=== PATIENT | female | born 1965 | race Caucasian/White ===

== ENCOUNTER 2024-05-13 09:00 | Day surgery (SDC) | payer OTHER ==
[2024-05-10 10:41] LABS: Absolute Basophils 0.1 K/uL (0-0.5); Absolute Eosinophils 0.3 K/uL (0-0.5); Absolute Lymphocytes (CBC) 2.3 K/uL (0.7-4.9); Absolute Monocytes 0.7 K/uL (0.1-1.3); Absolute Neutrophil 4.7 K/uL (1.8-8.0); Basophils % 0.7 % (0-1.3); Eosinophils % 3.9 % (0-4.4); Hematocrit 34.3 % (36.0-45.0); Hemoglobin 11.3 g/dL (12.0-15.0); Lymphocytes % 28.5 % (15.3-44.8); MCH 31.3 pg (27.0-35.0); MPV 7.9 fL (7.6-11.3); Monocytes % 8.8 % (3.3-12.3); Neutrophils % 58.1 % (41.7-73.7); Platelets 249 thou/uL (152-406); RBC Red Blood Cell Count 3.61 M/uL (3.86-4.86)
[2024-05-10 10:46] LABS: Anion Gap 7.2 mEq/L (5.0-15.0); Potassium 4.2 mEq/L (3.5-5.1)
[2024-05-13] MEDS ORDERED: propofoL 200 MG/20 ML VIAL IV ONE (09:31)
[2024-05-13] MEDS ORDERED: LIDOCAINE 1% MPF 5 ML VIAL ONE (09:31)
[2024-05-13] MEDS ORDERED: ONDANSETRON 4 MG/2 ML VIAL ONE (09:31)
[2024-05-13] MEDS ORDERED: FENTANYL CITR 100 MCG/2 ML ONE (09:31)
[2024-05-13] MEDS ORDERED: MIDAZOLAM HCL 2 MG/2 ML INJ ONE (09:31)
[2024-05-13] MEDS ORDERED: ROCURONIUM 50 MG/5 ML VIAL IV ONE (09:31)
[2024-05-13] MEDS: Ringers Lactate 1,000 ML IV ONE (09:50)
[2024-05-13] MEDS ORDERED: SUGAMMADEX SODIUM 200 MG/2 ML VIAL IV ONE (10:21)
[2024-05-13] MEDS ORDERED: ALBUTEROL INHALER 200 PUFF/6.7 GM IH ONE (10:53)
[2024-05-13] MEDS ORDERED: dexAMETHasone 10 MG/ML VIAL ONE ×2 (10:53→10:54)
[2024-05-13] MEDS ORDERED: GLYCOPYRROLATE 0.2 MG/ML SYR ONE (10:54)
[2024-05-13] MEDS: OXYMETAZOLINE HCL 0.05% 15ML NAS ONE (11:39)
[2024-05-13] MEDS: MIDAZOLAM HCL 2 MG/2 ML INJ ONE (12:07)
[2024-05-13] MEDS: HYDROMORPHONE HCL 1 MG/ML INJ ONE (12:19)
[2024-05-13 12:35] VITALS: TEMP 97.8
[2024-05-13] MEDS: ACETAMINOPHEN 160 MG/5 ML UCUP ONE (13:16)
[2024-05-13 14:04] VITALS: BP 103/57; O2SAT 96
--- NOTE | 2024-05-18 01:38 | OP ---
Date of Procedure: 05/13/2024 Surgeon: HUEY ENGEL Primary Care Physician: None. Preoperative Diagnoses: 1.Chronic tobacco use. 2.Chronic hoarseness. 3.Neoplasm, uncertain behavior, bilateral vocal cords. Postoperative Diagnoses: 1.Chronic tobacco use. 2.Chronic hoarseness. 3.Neoplasm, uncertain behavior, bilateral vocal cords. Procedures: 1.Flexible bronchoscopy under general sedation. 2.Direct laryngoscopy with biopsies of bilateral vocal folds. 3.Direct laryngoscopy with excision of lesion with micro flap, right vocal cord. Anesthesia: General endotracheal anesthesia was administered. Estimated Blood Loss: Less than 2 mL. Specimens: Obtained from anterior portion of bilateral true vocal cords, right vocal cord neoplasm/p olyp removed with cup forceps. 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 Positive for bronchoconstriction, bilateral bronchi. Complications: None. Disposition: Stable. The patient tolerated procedure well. Indication For Procedure: The patient is a 58-year-old female who presented to my outpatient clinic with chronic hoarseness secondary to chronic tobacco use. Upon examination, patient had bilateral tr ue vocal fold edema and suspected polyp involving the right vocal cords. The patient also had 2 whit e plaque looking lesions, 1 located each on the left and right true vocal cords. These were monitore d for a period of time and did not dissipate or resolve, thus these were indications to bring the pat ient to operative suite for the above-mentioned procedure. She understood. All questions were answe red. Risks versus benefits and complications were explained in detail. A consent form was signed, [facility] was placed in the chart. Description Of Procedure: Patient was transferred from the preoperative holding area to the operativ e suite by Department of Anesthesia, placed on the operating table supine, sedated and intubated in n ormal fashion. A flexible bronchoscope was introduced into the endotracheal tube and advanced down t o the level of the serenity. The scope was advanced to the right main bronchus and advanced to the low er segment bronchioles. Patient had clear mucus, but no evidence of ulcer, tumor, mass, lesion. Pat ient had diffuse general bronchoconstriction. The scope was then removed and advanced into the left main bronchus and down to the lower segment bronchials including the lingula. Patient had general di ffuse bronchoconstriction and clear mucus, but no evidence of mass, lesion, or obstruction. The scop e was completely withdrawn from the endotracheal tube. The endotracheal tube was then switched to a smaller 5.5 mm tube and then my attention was placed to the laryngoscope. A rigid direct laryngoscop e was introduced along the endotracheal tube and suspended from the Valdovinos stand. A telescope was used to take photos of the vocal cords and also to assist in surgery. My attention was placed to the ant erior glottis, in which 2 small lesions were located at the anterior glottis, 1 on the right and 1 on the left, and these were biopsied with small cup forceps and then handed off the field and sent in [facility] for pathology evaluation. I then used a sickle knife and made an incision in the area of the right ventricle between the true and false vocal cord. Patient had a significant amount of mucus th at was suctioned from this area. The patient also had a relatively large polyp that was underneath t he superficial lamina propria and this was removed with cup forceps. The micro flap was then draped back into place and epinephrine was used for vasoconstriction and decongestion. A sickle knife was t hen used to make an incision between the left and true vocal fold and the micro flap was then opened medially and a large amount of mucus was removed with suction and then the flap was then draped back over into position. The edema was much improved once the mucus was removed, and Afrin-soaked nasal p ledget was held into place for several minutes and then removed. The patient tolerated the procedure well and she was discharged to PACU and then subsequently discharged home for complete voice rest. She will follow up in 2 to 4 weeks or sooner if needed. MAC/EILEEN Voice ID: [id number] Report ID: [id number]
== END 2024-05-13 13:20 | disposition home or self-care (01) ==
LOC: OR 09:00
PROVIDERS: ATTEND Otolaryngology Facial Plastic Surgery
PROC: 0CBV8ZX Excision of Left Vocal Cord, Via Natural or Artificial Opening Endoscopic, Diagnostic (ICD-10-PCS; 2024-05-13)
PROC: 0BJ08ZZ Inspection of Tracheobronchial Tree, Via Natural or Artificial Opening Endoscopic (ICD-10-PCS; 2024-05-13)
PROC: 0CDT8ZZ Extraction of Right Vocal Cord, Via Natural or Artificial Opening Endoscopic (ICD-10-PCS; 2024-05-13)
PROC: 0CBS8ZX Excision of Larynx, Via Natural or Artificial Opening Endoscopic, Diagnostic (ICD-10-PCS; principal; 2024-05-13 10:15)
PROC: 0CBT8ZX Excision of Right Vocal Cord, Via Natural or Artificial Opening Endoscopic, Diagnostic (ICD-10-PCS; 2024-05-13 10:15)
DX: J41.0 Simple chronic bronchitis (principal); J38.1 Polyp of vocal cord and larynx; J38.3 Other diseases of vocal cords
CPT/HCPCS: 31536; 31622; 31545; 85025; 80048; 36415; 88305; J2704; J2003; J2250 ×2; J3010; J1100 ×2; J1171; J2405; J7120